=== PATIENT | male | born 1970 ===

== ENCOUNTER 2022-11-25 05:53 | Day surgery (SDC) | payer OTHER ==
[~2022-11-25] VITALS: Ht 170.2 cm; Wt 78.9 kg
== END 2022-11-25 14:45 | disposition home or self-care (01) ==
LOC: CIR.AMB 05:53
PROVIDERS: ATTEND Specialist
DX: K40.90 Unilateral inguinal hernia, without obstruction or gangrene, not specified as recurrent (principal); Z20.822 Contact with and (suspected) exposure to COVID-19
CPT/HCPCS: 49505; C1781